=== PATIENT | female | born 1995 | race Hispanic/Latino ===

== ENCOUNTER 2018-09-07 13:57 | Emergency (ER) | payer SELFPAY ==
[2018-09-07 14:35] LABS: Urine Blood 3+ (NEG); Urine Glucose NEGATIVE (NEG); Urine Protein 2+ (NEG); Urine pH 6.5 (5.0-7.0)
[2018-09-07 14:37] LABS: Absolute Lymphocytes (CBC) 1.6 K/uL (0.7-4.9); Basophils % 0.5 % (0-1.3); Eosinophils % 0.8 % (0-4.4); Hematocrit 44.7 % (36.0-45.0); Lymphocytes % 25.8 % (15.3-44.8); MPV 8.2 fL (7.6-11.3); Monocytes % 6.1 % (3.3-12.3); RBC Red Blood Cell Count 4.65 M/uL (3.86-4.86)
[2018-09-07 14:55] LABS: Potassium 3.8 mmol/L (3.5-5.1)
[2018-09-07 15:00] LABS: Urine Bacteria 20-50 /HPF (<20); Urine Culture Reflex Order REFLEXED; Urine RBC LOADED /HPF (NONE SEEN)
--- NOTE | 2018-09-07 16:10 | RAD REPORT ---
EXAM DESCRIPTION: US - Transvaginal OB - 09/07/2018 3:30 pm CLINICAL HISTORY: Abdominal pain, pelvic pain, vaginal bleeding COMPARISON: None. FINDINGS: Uterus is normal in size with no myometrial mass identifiable. No solid mass of the endome trium. In the fundal portion of the endometrial cavity a round cyst or fluid collection is present. N o yolk sac or pole. This is most likely an normal shaped, early IUP. Average sac diameter corre sponds to 5 week 1 day age. No hematoma in the endometrial cavity. Both ovaries are identified. Small cysts are present largest at 8 mm. Doppler evaluation shows normal stromal blood flow pattern. No adnexal abnormality. No blood or fluid in the cul de sac. IMPRESSION: Small 5 week 1 day sized sac with no yolk sac or pole identifiable. Early IUP is most likely. Follow-up sonography can be performed to confirm progressive . No ovarian or adnexal mass. No suspicion for ectopic .
--- NOTE | 2018-09-07 16:13 | ER ---
Nurse's Notes [facility] Name: Kim Torres Age: 23 yrs Sex: Female : 1995 Arrival Date: 09/07/2018 Time: 13:59 Bed 28 Private MD: Diagnosis: Threatened ;Urinary tract infection, site not specified Presentation: 09/07 14:05 Presenting complaint: Patient states: I speak only a little frisian, pt family member sg on phone with pt and is speaking frisian for her, reports she is about 6 wks and has had vaginal bleeding that started yesterday and worsening today, denies N/V//D/Fever. Transition of care: patient was not received from another setting of care. Onset of symptoms was September 07, 2018. Risk Assessment: Do you want to hurt yourself or someone else? Patient reports no desire to harm self or others. Initial Sepsis Screen: Does the patient meet any 2 criteria? HR > 90 bpm. Does the patient have a suspected source of infection? No. Patient's initial sepsis screen is negative. Care prior to arrival: None. 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 - Social history:: Smoking status: Patient/guardian denies using tobacco. - Ebola Screening: : Patient negative for fever greater than or equal to 101.5 degrees Fahrenheit, and additional compatible Ebola Virus Disease symptoms Patient denies exposure to infectious person Patient denies travel to an Ebola-affected area in the 21 days before illness onset No symptoms or risks identified at this time. Screenin:55 Abuse screen: Denies threats or abuse. Denies injuries from another. Nutritional mg2 screening: No deficits noted. Tuberculosis screening: No symptoms or risk factors identified. Fall Risk IV access (20 points). Assessment: 14:53 Obstetrical Assessment: General assessment: awake and alert, skin warm and dry. mg2 General: Appears in no apparent distress. comfortable, Behavior is calm, cooperative. Pain: Complains of pain in back and abdomen Pain does not radiate. Pain currently is 3 out of 10 on a pain scale. Quality of pain is described as aching, Pain began gradually, 2-3 days ago. Is intermittent. Neuro: Level of Consciousness is awake, alert, obeys commands, Oriented to person, place, time, situation. Cardiovascular: Capillary refill < 3 seconds Patient's skin is warm and dry. Respiratory: Airway is patent Respiratory effort is even, unlabored, Respiratory pattern is regular, symmetrical. GI: Abdomen is flat, non-distended, Reports lower abdominal pain. : Urine is blood tinged. : Reports vaginal bleeding that is light flow, spotty, since thursday. EENT: No signs and/or symptoms were reported regarding the EENT system. Derm: Skin is intact, is healthy with good turgor, Skin is pink, warm \T\ dry. normal. Musculoskeletal: Circulation, motion, and sensation intact. Capillary refill < 3 seconds. 15:24 Reassessment: patient sent to ultrasound via wheelchair. mg2 16:59 Reassessment: Patient states feeling better. mg2 Vital Signs: 14:07 BP 132 / 78; Pulse 109; Resp 16; Temp 97.2; Pulse Ox 100% on R/A; Weight 59.87 kg; sg 15:41 BP 128 / 83; Pulse 89; Resp 18; Pulse Ox 100% on R/A; Pain 2/10; mg2 16:50 BP 120 / 85; Pulse 85; Resp 18; Temp 98; Pulse Ox 100% on R/A; Pain 0/10; mg2 Vitals: 16:59 Heart Tones ultrasound done. mg2 ED Course: 13:59 Patient arrived in ED. rg4 14:01 Terrance Delgado PA is PHCP. jr8 14:01 Eric Estes MD is Attending Physician. jr8 14:05 Jules Raines RN is Primary Nurse. mg2 14:05 Arm band placed on. EKG completed in triage. Results shown to MD. sg 14:07 Triage completed. sg 14:56 Patient has correct armband on for positive identification. Pulse ox on. NIBP on. Door mg2 closed. Warm blanket given. 14:56 No provider procedures requiring assistance completed. Inserted saline lock: 20 gauge mg2 in right antecubital area, using aseptic technique. Blood collected. 15:31 US Transvaginal Ob In Process Unspecified. EDMS 16:59 IV discontinued, intact, bleeding controlled, No redness/swelling at site. Pressure mg2 dressing applied. Administered Medications: No medications were administered Point of Care Testing: Urine : 17:00 hCG Reading: Positive; Control Reading: Positive; mg2 Outcome: 16:12 Discharge ordered by MD. gillespie 16:59 Discharged to home ambulatory, with family. mg2 16:59 Condition: stable 16:59 Discharge instructions given to patient, family, Instructed on discharge instructions, follow up and referral plans. medication usage, Demonstrated understanding of instructions, follow-up care, medications, Prescriptions given X 1. 17:01 Patient left the ED. mg2 Signatures: Dispatcher [employer] EDMS Truman Quiros, RN RN Terrance Pandya PA PA jrDebra Herzog rg4 Jules Raines RN RN mg2
--- NOTE | 2018-09-07 16:13 | EDPHYS ---
Physician Documentation [facility] Name: Kim Torres Age: 23 yrs Sex: Female : 1995 Arrival Date: 09/07/2018 Time: 13:59 Bed 28 Private MD: ED Physician Eric Estes HPI: 09/07 15:28 This 23 yrs old Female presents to ER via Ambulatory with complaints of jr8 Vaginal Bleeding, + Preg <12wks. 15:28 The patient presents to the emergency department with vaginal bleeding, that is light. jr8 The estimated gestational age is 6 weeks. Associated signs and symptoms: Pertinent positives: abdominal pain. The patient has not experienced similar symptoms in the past. The patient has not recently seen a physician. 15:38 light spotting that started Thursday. Had stopped but now started back but worse this jr8 time. Mild lower pelvic cramping as well. Denies any other symptoms . 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 - Social history:: Smoking status: Patient/guardian denies using tobacco. - Ebola Screening: : Patient negative for fever greater than or equal to 101.5 degrees Fahrenheit, and additional compatible Ebola Virus Disease symptoms Patient denies exposure to infectious person Patient denies travel to an Ebola-affected area in the 21 days before illness onset No symptoms or risks identified at this time. ROS: 15:46 Eyes: Negative for injury, pain, redness, and discharge, ENT: Negative for injury, jr8 pain, and discharge, Neck: Negative for injury, pain, and swelling, Cardiovascular: Negative for chest pain, palpitations, and edema, Respiratory: Negative for shortness of breath, cough, wheezing, and pleuritic chest pain, Abdomen/GI: Negative for abdominal pain, nausea, vomiting, diarrhea, and constipation, Back: Negative for injury and pain, MS/Extremity: Negative for injury and deformity, Skin: Negative for injury, rash, and discoloration, Neuro: Negative for headache, weakness, numbness, tingling, and seizure. 15:46 : Positive for pelvic pain, vaginal bleeding, Negative for vaginal discharge, vaginal itching, menstrual abnormality. Exam: 15:46 Eyes: Pupils equal round and reactive to light, extra-ocular motions intact. Lids and jr8 lashes normal. Conjunctiva and sclera are non-icteric and not injected. Cornea within normal limits. Periorbital areas with no swelling, redness, or edema. ENT: Nares patent. No nasal discharge, no septal abnormalities noted. Tympanic membranes are normal and external auditory canals are clear. Oropharynx with no redness, swelling, or masses, exudates, or evidence of obstruction, uvula midline. Mucous membranes moist. Neck: Trachea midline, no thyromegaly or masses palpated, and no cervical lymphadenopathy. Supple, full range of motion without nuchal rigidity, or vertebral point tenderness. No Meningismus. Cardiovascular: Regular rate and rhythm with a normal S1 and S2. No gallops, murmurs, or rubs. Normal PMI, no JVD. No pulse deficits. Respiratory: Lungs have equal breath sounds bilaterally, clear to auscultation and percussion. No rales, rhonchi or wheezes noted. No increased work of breathing, no retractions or nasal flaring. Abdomen/GI: Soft, non-tender, with normal bowel sounds. No distension or tympany. No guarding or rebound. No evidence of tenderness throughout. Back: No spinal tenderness. No costovertebral tenderness. Full range of motion. Skin: Warm, dry with normal turgor. Normal color with no rashes, no lesions, and no evidence of cellulitis. MS/ Extremity: Pulses equal, no cyanosis. Neurovascular intact. Full, normal range of motion. Neuro: Awake and alert, GCS 15, oriented to person, place, time, and situation. Cranial nerves II-XII grossly intact. Motor strength 5/5 in all extremities. Sensory grossly intact. Cerebellar exam normal. Normal gait. Vital Signs: 14:07 BP 132 / 78; Pulse 109; Resp 16; Temp 97.2; Pulse Ox 100% on R/A; Weight 59.87 kg; sg 15:41 BP 128 / 83; Pulse 89; Resp 18; Pulse Ox 100% on R/A; Pain 2/10; mg2 16:50 BP 120 / 85; Pulse 85; Resp 18; Temp 98; Pulse Ox 100% on R/A; Pain 0/10; mg2 MDM: 14:01 Patient medically screened. 8 16:11 Data reviewed: vital signs, nurses notes, lab test result(s), radiologic studies, jr8 ultrasound. Data interpreted: Pulse oximetry: on room air is 100 %. Interpretation: normal. Counseling: I had a detailed discussion with the patient and/or guardian regarding: the historical points, exam findings, and any diagnostic results supporting the discharge/admit diagnosis, lab results, radiology results, the need for outpatient follow up, an OB/Gyne specialist, to return to the emergency department if symptoms worsen or persist or if there are any questions or concerns that arise at home. 09/07 14:09 Order name: Quantitative Hcg; Complete Time: 15:15 [facility] 09/07 14:09 Order name: Abo/rh Typing; Complete Time: 15:15 [facility] 09/07 14:09 Order name: Basic Metabolic Panel; Complete Time: 15:15 [facility] 09/07 14:09 Order name: CBC with Diff; Complete Time: 15:15 [facility] 09/07 14:33 Order name: Urine Dipstick--Ancillary (enter results); Complete Time: 15:15 ms 09/07 14:33 Order name: Urine --Ancillary (enter results); Complete Time: 15:15 ms 09/07 14:09 Order name: Urine Test (obtain specimen); Complete Time: 14:29 8 09/07 14:09 Order name: IV Saline Lock; Complete Time: 14:22 [facility] 09/07 14:09 Order name: Labs collected and sent; Complete Time: 14:22 [facility] 09/07 14:09 Order name: NPO; Complete Time: 14:22 [facility] 09/07 14:27 Order name: US Transvaginal Ob; Complete Time: 16:11 [facility] 09/07 14:44 Order name: Urine Microscopic Only; Complete Time: 15:15 ms 09/07 15:01 Order name: Urine Culture [facility] 09/07 16:24 Order name: ABO/RH no charge; Complete Time: 16:29 [facility] 09/07 14:09 Order name: Urine Dipstick-Ancillary (obtain specimen); Complete Time: 14:22 jr Administered Medications: No medications were administered Point of Care Testing: Urine : 17:00 hCG Reading: Positive; Control Reading: Positive; mg2 Disposition: 09/08 09:43 Co-signature as Attending Physician, Eric Estes MD I agree with the assessment and wa plan of care. Disposition: 09/07/18 16:12 Discharged to Home. Impression: Threatened , Urinary tract infection, site not specified. - Condition is Stable. - Discharge Instructions: Threatened Miscarriage, Urinary Tract Infection, Adult, Vaginal Bleeding During , First Trimester, Pelvic Rest. - Prescriptions for Macrobid 100 mg Oral Capsule - take 1 capsule by ORAL route every 12 hours for 7 days; 14 capsule. - Medication Reconciliation Form, Thank You Letter, Antibiotic Education, Prescription Opioid Use form. - Follow up: Private Physician; When: 48 Hours; Reason: Recheck today's complaints, Continuance of care, Repeat Beta-HCG (48 Hours), Re-evaluation by your physician. - Problem is new. - Symptoms have improved. Signatures: Dispatcher [employer] EDMS Truman Quiros RN RN Terrance Pandya PA PA jr8 Eric Estes MD MD wa Gardose, Michele, RN RN mg2 Corrections: (The following items were deleted from the chart) 09/07 17:01 16:12 09/07/2018 16:12 Discharged to Home. Impression: Threatened ; Urinary mg2 tract infection, site not specified. Condition is Stable. Forms are Medication Reconciliation Form, Thank You Letter, Antibiotic Education, Prescription Opioid Use. Follow up: Private Physician; When: 48 Hours; Reason: Recheck today's complaints, Continuance of care, Repeat Beta-HCG (48 Hours), Re-evaluation by your physician. Problem is new. Symptoms have improved. jr8
== END 2018-09-07 17:01 | disposition home or self-care (01) ==
LOC: ER 13:57
DX: O20.0 Threatened abortion (principal); O23.41 Unspecified infection of urinary tract in pregnancy, first trimester; Z3A.01 Less than 8 weeks gestation of pregnancy
CPT/HCPCS: 36415; 76817; 80048; 81003; 81015; 81025; 84702; 85025; 86900; 86901; 87086; 87088; 99284

== ENCOUNTER 2018-09-14 17:19 | Emergency (ER) | payer SELFPAY ==
--- OUTSIDE RECORDS SUMMARY | 2018-09-14 17:22 | XMS REPORT ---
:1995 [facility] Address [address] [place] [address] Care Team Providers Name Role Phone Unavailable Unavailable Unavailable Payers Payer Name Policy Type Policy Number Effective Date Expiration Date Problems This patient has no known problems. Allergies, Adverse Reactions, Alerts Allergy Name Allergy Status Severity Reaction(s) Onset Inactive Treating Comments Type Date Date Clinician Penicillins DA Active U 2018-09 00:00:0 0 Medications This patient has no known medications. 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 B-mode/Sanchez scale imaging with color Doppler perfusion imaging and spectral analysis was performed. The uterus measures 6.4 x 3.1 x 4.4 cm with a possible tiny gestational saclike structure in the fundus. The age measurement would be approximately 5 weeks. No elements are seen. The right ovary is 2.6 x 1.6 x 2 cm with normal flow pattern on Doppler. Left ovary at 2.3 x 2 x 2.0 cm with normal perfusion on Doppler as well. No cul-de- sac fluid. Impression: Tiny saclike structure possibly an early gestational sac. No evidence of ectopic . Further correlation with beta hCG levels may be needed over the next few days. Repeat study in the next week may be helpful as well for reassessment. Ovaries intact. Location: U 19 at 1540 Reported and signed by: AARON JIMENES M.D. CC : Wicho Encinas APN Taveras Technologist: RT Hany Jin) DEIDRAMS Trnscrd Date/Time/By: 09/09/2018 ([id number]) : By: Alba Orig Print D/T: S: 09/09/2018 ([id number]) PAGE 1 Signed Report BASIC METABOLIC PANEL 2018-09-09 14:58:00 Test Item Value Reference Range Comments SODIUM (test code=NA) 137 mmol/L 136-145 POTASSIUM (test code=K) 4.0 mmol/L 3.5-5.1 CHLORIDE (test code=CL) 107 mmol/L 98-107 CARBON DIOXIDE (test code=CO2) 25 mmol/L 21-32 GLUCOSE (test code=GLU) 95 mg/dL 70-100 BLOOD UREA NITROGEN (test 14 mg/dL 7-18 code=BUN) GLOMERULAR FILTRATION RATE (test > 60.00 >=60 Reporting units: code=GFR) mL/min/1.73m\S\2 (Modified MDRD formula)REFERENCE RANGE: > or=60 ml/min/1.73M2IF PATIENT IS -SAMOAN, MULTIPLY REPORTED RESULT BY1.21. CREATININE (test code=CREAT) 0.90 mg/dL 0.51-0.95 CALCIUM (test code=CA) 8.8 mg/dL 8.5-10.1 HCG [id number] 14:58:00 Test Item Value Reference Range Comments HCG SERUM (test 740 mIU/ml 0-6 Values for B-hCG generally peak code=HCG) during the first trimesterand decline slowly throughout the remainder of thepregnancy. A sharply reduced or falling serum B-hCG levelmay indicate an abnormal , and additonal clinicalevaluation and follow-up may be appropriate. HCG rangesduring normal , as reported in the literature, aresummarized below.............................. ...............................Appr oximate hCG Approximate GestationalRange mIU/mL[IU/L] Age 5 - 50 0.2 - 1 Week50 - 500 1 - 2 Bmsog668 - 5000 2 - 3 Prgoe435 - 10,000 3 - 4 Lweml1910 - 50,000 4 - 5 Weeks10,000 - 100,000 5 - 6 Weeks15,000 - 200,000 6 - 8 Weeks10,000 - 100,000 2 - 3 Months URINALYSIS W REFLEX [id number] 14:44:00 Test Item Value Reference Range Comments UA COLOR (test code=COLU) Yellow YELLOW UA APPEARANCE (test code=APPU) CLEAR CLEAR UA GLUCOSE DIPSTICK (test code=DGLUU) NORMAL mg/dl NORMAL UA BILIRUBIN DIPSTICK (test code=BILU) NEGATIVE mg/dl NEGATIVE UA KETONE DIPSTICK (test code=KETU) NEGATIVE mg/dl NEGATIVE UA SPECIFIC GRAVITY (test code=SGU) 1.021 1.001-1.035 UA BLOOD DIPSTICK (test code=JOEL) NEGATIVE /UL NEGATIVE UA PH DIPSTICK (test code=RON) 6.0 4.6-8.0 UA PROTEIN DIPSTICK (test code=PROU) NEGATIVE mg/dl NEGATIVE UA UROBILINIOGEN DIPSTICK (test code=URO) NORMAL mg/dl NORMAL UA NITRITE DIPSTICK (test code=MARYLU) NEGATIVE NEGATIVE UA LEUKOCYTE ESTERASE DIPSTICK (test NEGATIVE /UL NEGATIVE code=LEUU) UA COMMENT (test code=COMU) CLN CATCH UA WBC (test code=WBCU) 0-2 #/hpf 0-5 UA RBC (test code=RBCU) 0-2 #/hpf 0-5 UA EPITHELIAL CELLS (test code=EPIU) 1+ /hpf NEG,FEW UA MUCUS (test code=MUCU) FEW /hpf NEG,FEW CBC W/AUTO [id number] 14:40:00 Test Item Value Reference Range Comments WHITE BLOOD CELL (test code=WBC) 7.5 X10(3) 4.5-11.0 RED BLOOD CELL (test code=RBC) 4.57 X10(6) 4.2-5.4 HEMOGLOBIN (test code=HGB) 14.4 g/dL 12.5-16.0 HEMATOCRIT (test code=HCT) 43.1 % 37.0-47.0 MEAN CELL VOLUME (test code=MCV) 94.3 fl 78-100 MEAN CELL HGB (test code=MCH) 31.5 pg 26.0-34.0 MEAN CELL HGB CONCETRATION (test code=MCHC) 33.4 g/dl 30.0-37.0 RED CELL DISTRIBUTION WIDTH (test code=RDW) 12.7 % 11.5-14.5 PLATELET COUNT (test code=PLT) 248 X10(3) 150-350 MEAN PLATELET VOLUME (test code=MPV) 9.7 fl 8.7-11.4 NEUTROPHIL % (test code=NT%) 62.9 % 36.0-66.0 IMMATURE GRANULOCYTE % (test code=IG%) 0.4 % 0.0-2.0 LYMPHOCYTE % (test code=LY%) 28.8 % 16-50 MONOCYTE % (test code=MO%) 5.9 % 0.0-13.0 EOSINOPHIL % (test code=EO%) 1.5 % 0.0-4.5 BASOPHIL % (test code=BA%) 0.5 % 0.0-1.5 NUCLEATED RBC % (test code=NRBC%) 0.0 % 0-0.2 NEUTROPHIL # (test code=NT#) 4.7 X10(3) 1.7-7.7 IMMATURE GRANULOCYTE # (test code=IG#) 0.03 X10(3)uL 0.00-0.03 LYMPHOCYTE # (test code=LY#) 2.2 X10(3) 0.7-4.0 MONOCYTE # (test code=MO#) 0.4 X10(3) 0.0-0.89 EOSINOPHIL # (test code=EO#) 0.1 X10(3) 0.0-0.6 BASOPHIL # (test code=BA#) 0.0 X10(3) 0.0-0.2 NUCLEATED RBC # (test code=NRBC#) 0.00 K/mm3 0.0-0.1
[2018-09-14 19:25] LABS: Absolute Lymphocytes (CBC) 1.4 K/uL (0.7-4.9); Basophils % 0.3 % (0-1.3); Eosinophils % 0.5 % (0-4.4); Hematocrit 46.1 % (36.0-45.0); Lymphocytes % 13.9 % (15.3-44.8); MPV 8.5 fL (7.6-11.3); Monocytes % 4.8 % (3.3-12.3); RBC Red Blood Cell Count 4.89 M/uL (3.86-4.86)
[2018-09-14] MEDS ORDERED: NA CHLORIDE 0.9% 1,000 ML ONE (19:43)
[2018-09-14 19:45] LABS: Potassium 3.6 mmol/L (3.5-5.1)
[2018-09-14 19:56] LABS: Urine Blood NEGATIVE (NEG); Urine Glucose NEGATIVE (NEG); Urine Protein NEGATIVE (NEG); Urine Specific Gravity >1.030 (1.005-1.030)
--- NOTE | 2018-09-14 20:06 | RAD REPORT ---
EXAM DESCRIPTION: US - Transvaginal OB - 09/14/2018 7:40 pm CLINICAL HISTORY: Abdominal pain, cramping COMPARISON: September 07, 2018 FINDINGS: Irregularly shaped gestational sac is present in the fundal portion of the endometrial cav ity at the initiation of the examination. Over the course of the examination the gestational sac flat tened unchanged contour as well is migrating more inferiorly towards the lower uterine segment. Within the gestational sac no yolk sac or pole identifiable. No mass or hematoma. No ovarian or adnexal abnormality. No fluid or blood in the cul de sac. IMPRESSION: A 5 week sized gestational sac is seen within the endometrial cavity. No yolk sac or fet al pole. During the course of the examination the gestational sac migrated inferiorly in the endometrial cavit y with distortion in shape and contour occurring.
--- NOTE | 2018-09-14 21:09 | EDPHYS ---
Physician Documentation [facility] Name: Kim Torers Age: 23 yrs Sex: Female : 1995 Arrival Date: 09/14/2018 Time: 17:24 Bed 13 Private MD: ED Physician Clem Plummer HPI: 09/14 18:55 This 23 yrs old Female presents to ER via Ambulatory with complaints of caleb Vaginal Bleeding, + Preg <12wks. 18:55 The patient presents to the emergency department with abdominal pain, vaginal bleeding, caleb that is light. The estimated gestational age is 7 weeks. course: care: private OB physicianlamberto. Previous pregnancies: the patient has never been . Associated signs and symptoms: The patient has no apparent associated signs or symptoms. The patient has not experienced similar symptoms in the past. MANAGER UROLOGY: 17:41 1, Full Term 0 bp 18:55 1, Full Term 0, Premature 0, 0, Living 0 caleb Historical: - Allergies: 17:41 PENICILLINS; bp - Home Meds: 17:41 None [Active]; bp - PMHx: 17:41 None; bp - PSHx: 17:41 None; bp - Immunization history:: Adult Immunizations up to date. - Social history:: Smoking status: Patient/guardian denies using tobacco. - Ebola Screening: : No symptoms or risks identified at this time. - Family history:: not pertinent. ROS: 18:55 Constitutional: Negative for fever, chills, and weight loss, Eyes: Negative for injury, caleb pain, redness, and discharge, ENT: Negative for injury, pain, and discharge, Neck: Negative for injury, pain, and swelling, Cardiovascular: Negative for chest pain, palpitations, and edema, Respiratory: Negative for shortness of breath, cough, wheezing, and pleuritic chest pain, Back: Negative for injury and pain, : Negative for injury, bleeding, discharge, and swelling, MS/Extremity: Negative for injury and deformity, Skin: Negative for injury, rash, and discoloration, Neuro: Negative for headache, weakness, numbness, tingling, and seizure. 18:55 Abdomen/GI: Positive for abdominal pain. Exam: 18:55 Constitutional: This is a well developed, well nourished patient who is awake, alert, caleb and in no acute distress. Head/Face: Normocephalic, atraumatic. Eyes: Pupils equal round and reactive to light, extra-ocular motions intact. Lids and lashes normal. Conjunctiva and sclera are non-icteric and not injected. Cornea within normal limits. Periorbital areas with no swelling, redness, or edema. ENT: Nares patent. No nasal discharge, no septal abnormalities noted. Tympanic membranes are normal and external auditory canals are clear. Oropharynx with no redness, swelling, or masses, exudates, or evidence of obstruction, uvula midline. Mucous membranes moist. Neck: Trachea midline, no thyromegaly or masses palpated, and no cervical lymphadenopathy. Supple, full range of motion without nuchal rigidity, or vertebral point tenderness. No Meningismus. Chest/axilla: Normal chest wall appearance and motion. Nontender with no deformity. No lesions are appreciated. Cardiovascular: Regular rate and rhythm with a normal S1 and S2. No gallops, murmurs, or rubs. Normal PMI, no JVD. No pulse deficits. Respiratory: Lungs have equal breath sounds bilaterally, clear to auscultation and percussion. No rales, rhonchi or wheezes noted. No increased work of breathing, no retractions or nasal flaring. Abdomen/GI: Soft, non-tender, with normal bowel sounds. No distension or tympany. No guarding or rebound. No evidence of tenderness throughout. Back: No spinal tenderness. No costovertebral tenderness. Full range of motion. Skin: Warm, dry with normal turgor. Normal color with no rashes, no lesions, and no evidence of cellulitis. MS/ Extremity: Pulses equal, no cyanosis. Neurovascular intact. Full, normal range of motion. Neuro: Awake and alert, GCS 15, oriented to person, place, time, and situation. Cranial nerves II-XII grossly intact. Motor strength 5/5 in all extremities. Sensory grossly intact. Cerebellar exam normal. Normal gait. Psych: Awake, alert, with orientation to person, place and time. Behavior, mood, and affect are within normal limits. Vital Signs: 17:41 BP 142 / 81; Pulse 120; Resp 20; Temp 99.1; Pulse Ox 100% ; Weight 50 kg; bp 20:43 BP 122 / 82; Pulse 76; Resp 18; Pulse Ox 100% ; ea 20:45 Temp 98.9; ea MDM: 18:48 Patient medically screened. [facility] 18:55 Data reviewed: vital signs, nurses notes, lab test result(s), radiologic studies, [facility] ultrasound. 21:06 Data interpreted: Pulse oximetry: on room air is 100 %. Interpretation: normal. jr8 Counseling: I had a detailed discussion with the patient and/or guardian regarding: the historical points, exam findings, and any diagnostic results supporting the discharge/admit diagnosis, lab results, radiology results, the need for outpatient follow up, an OB/Gyne specialist, to return to the emergency department if symptoms worsen or persist or if there are any questions or concerns that arise at home. ED course: Discussed with patient that this is either an incomplete AB or blighted ovum based on US and HCG trending. Needs to f/u with OB again. If she starts to run fever or have pain to come back for further evaluation. Patient good with this plan . 09/14 18:49 Order name: Quantitative Hcg; Complete Time: 20:10 [facility] 09/14 18:49 Order name: Abo/rh Typing; Complete Time: 20:10 [facility] 09/14 18:49 Order name: Basic Metabolic Panel; Complete Time: 20:10 [facility] 09/14 18:49 Order name: CBC with Diff; Complete Time: 20:10 [facility] 09/14 18:55 Order name: Urine Culture [facility] 09/14 19:23 Order name: Urine Dipstick--Ancillary (enter results); Complete Time: 20:10 mw2 09/14 18:49 Order name: Urine Test (obtain specimen); Complete Time: 20:36 [facility] 09/14 18:49 Order name: IV Saline Lock; Complete Time: 19:16 [facility] 09/14 18:49 Order name: Labs collected and sent; Complete Time: 19:16 [facility] 09/14 18:49 Order name: NPO; Complete Time: 20:36 [facility] 09/14 18:49 Order name: Urine Dipstick-Ancillary (obtain specimen); Complete Time: 20:36 [facility] 09/14 18:49 Order name: US Transvaginal Ob; Complete Time: 20:10 [facility] 09/14 19:23 Order name: Urine --Ancillary (enter results); Complete Time: 20:10 mw2 Administered Medications: 19:55 Drug: NS 0.9% 1000 ml Route: IV; Rate: 1 bolus; Site: left hand; ea 21:16 Follow up: Response: No adverse reaction; IV Status: Completed infusion; IV Intake: ea 1000ml Disposition: 09/15 16:33 Co-signature as Attending Physician, Clem Plummer MD I agree with the assessment and caleb plan of care. Disposition: 09/14/18 21:08 Discharged to Home. Impression: Threatened . - Condition is Stable. - Discharge Instructions: Threatened Miscarriage, Vaginal Bleeding During , First Trimester, First Trimester of , [id number], First Trimester of , Threatened Miscarriage, [id number], Pelvic Rest. - Medication Reconciliation Form, Thank You Letter, Antibiotic Education, Prescription Opioid Use form. - Follow up: Private Physician; When: 2 - 3 days; Reason: Recheck today's complaints, Continuance of care, Re-evaluation by your physician. - Problem is new. - Symptoms have improved. Signatures: Dispatcher [employer] EDClem Pastor MD MD cha Roszak, Josh, PA PA jr8 Selena Chavira, RN RN Kevin Cheung RN RN bp Corrections: (The following items were deleted from the chart) 09/14 21:21 21:08 09/14/2018 21:08 Discharged to Home. Impression: Threatened . Condition ea is Stable. Discharge Instructions: Threatened Miscarriage, Vaginal Bleeding During , First Trimester, First Trimester of , [id number], First Trimester of , Threatened Miscarriage, [id number], Pelvic Rest. Prescriptions for Vitamin 27-0.8 mg Oral Tablet - take 1 tablet by ORAL route once daily; 30 tablet. and Forms are Medication Reconciliation Form, Thank You Letter, Antibiotic Education, Prescription Opioid Use. Follow up: Private Physician; When: 2 - 3 days; Reason: Recheck today's complaints, Continuance of care, Re-evaluation by your physician. Problem is new. Symptoms have improved. jr8
--- NOTE | 2018-09-14 21:09 | ER ---
Nurse's Notes [facility] Name: Kim Torres Age: 23 yrs Sex: Female : 1995 Arrival Date: 09/14/2018 Time: 17:24 Bed 13 Private MD: Diagnosis: Threatened Presentation: 09/14 17:40 Presenting complaint: Patient states: VAGINAL BLEEDING SINCE AM, MINIMAL BLOOD, 7 WK bp . Transition of care: patient was not received from another setting of care. Onset of symptoms was September 14, 2018. Risk Assessment: Do you want to hurt yourself or someone else? Patient reports no desire to harm self or others. Initial Sepsis Screen: Does the patient meet any 2 criteria? No. Patient's initial sepsis screen is negative. Does the patient have a suspected source of infection? No. Patient's initial sepsis screen is negative. Care prior to arrival: None. 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 - Social history:: Smoking status: Patient/guardian denies using tobacco. - Ebola Screening: : No symptoms or risks identified at this time. - Family history:: not pertinent. Screenin:00 Abuse screen: Denies threats or abuse. Nutritional screening: No deficits noted. ea Tuberculosis screening: No symptoms or risk factors identified. Fall Risk None identified. Assessment: 19:50 Reassessment: Patient and/or family updated on plan of care and expected duration. Pain ea level reassessed. Patient is alert, oriented x 3, equal unlabored respirations, skin warm/dry/pink. Pt returned form ultrasound. 20:00 General: Appears in no apparent distress. Behavior is calm, cooperative, appropriate ea for age. Pain: Denies pain. Neuro: Level of Consciousness is awake, alert, obeys commands, Oriented to person, place, time, situation. Cardiovascular: Patient's skin is warm and dry. Respiratory: Airway is patent Respiratory effort is even, unlabored, Respiratory pattern is regular, symmetrical. GI: No signs and/or symptoms were reported involving the gastrointestinal system. : Reports vaginal bleeding that is spotty. Derm: Skin is pink, warm \T\ dry. 21:19 Reassessment: Patient and/or family updated on plan of care and expected duration. Pain ea level reassessed. Patient is alert, oriented x 3, equal unlabored respirations, skin warm/dry/pink. Discharge instruction given to patient, verbalized the understanding of instruction. Pt left ED ambulatory accompanied by significant other. Pt tolerating well. Vital Signs: 17:41 BP 142 / 81; Pulse 120; Resp 20; Temp 99.1; Pulse Ox 100% ; Weight 50 kg; bp 20:43 BP 122 / 82; Pulse 76; Resp 18; Pulse Ox 100% ; ea 20:45 Temp 98.9; ea Vitals: 20:42 Heart Tones pt states she is 6 weeks . ea ED Course: 17:24 Patient arrived in ED. mr 17:41 Triage completed. bp 17:41 Arm band placed on. bp 18:48 Clem Plummer MD is Attending Physician. caleb 18:55 Patient taken to ultrasound. darren 19:11 Initial lab(s) drawn, by me, sent to lab. Inserted saline lock: 22 gauge in left hand, dh3 using aseptic technique. Blood collected. 19:40 US Transvaginal Ob In Process Unspecified. EDMS 19:50 Selena Chavira, RN is Primary Nurse. ea 20:00 Patient has correct armband on for positive identification. Placed in gown. Bed in low ea position. Call light in reach. 20:10 Terrance Delgado PA is PHCP. jose miguel 21:20 No provider procedures requiring assistance completed. IV discontinued, intact, ea bleeding controlled, No redness/swelling at site. Pressure dressing applied. Administered Medications: 19:55 Drug: NS 0.9% 1000 ml Route: IV; Rate: 1 bolus; Site: left hand; ea 21:16 Follow up: Response: No adverse reaction; IV Status: Completed infusion; IV Intake: ea 1000ml Intake: 21:16 IV: 1000ml; Total: 1000ml. ea Outcome: 21:08 Discharge ordered by MD. gillespie 21:21 Discharged to home ambulatory, with significant other. shantel 21:21 Condition: stable 21:21 Discharge instructions given to patient, Instructed on discharge instructions, follow up and referral plans. Demonstrated understanding of instructions, follow-up care. 21:21 Patient left the ED. shantel Signatures: Dispatcher [employer] EDNH Clem Plummer MD MD cha Rivera, Fifi mr Terrance Delgado, Michele Gupta jd, [place] [id number] Selena Chavira, RN RN Kevin Cheung, RN RN bp
== END 2018-09-14 21:21 | disposition home or self-care (01) ==
LOC: ER 17:19
DX: O20.0 Threatened abortion (principal); Z3A.01 Less than 8 weeks gestation of pregnancy; Z88.0 Allergy status to penicillin
CPT/HCPCS: 36415; 76817; 80048; 81003; 81025; 84702; 85025; 86900; 86901; 87086; 87088; 96360; 99284; J7030